=== PATIENT | male | born 2000 | race Hispanic/Latino ===

== ENCOUNTER 2023-06-08 14:58 | Emergency (ER) | payer BC, SELFPAY ==
[2023-06-08 14:59] VITALS: BP 133/78
[2023-06-08] MEDS: NSS 1000 IV (15:44)
[2023-06-08] MEDS: TORADOL 30 MG IV (15:44)
[2023-06-08] MEDS: REGLAN 10 MG IV (15:44)
[2023-06-08 15:56] LABS: % Basophils 0.6 % (0-2); % Eosinophils 1.9 % (0-6); % Immature Granulocytes 0.3 % (0-0.5); % Lymphocytes 23.5 % (20.5-51.1); % Monocytes 9.1 % (1.7-9.3); % Neutrophils 64.6 % (42.2-75.2); Absolute Eosinophils 0.1 10^3/uL (0-0.7); Absolute Lymphocytes 1.6 10^3/uL (1.2-3.4); Absolute Monocytes 0.6 10^3/uL (0.1-0.6); Absolute Neutrophils 4.4 10^3/uL (1.4-6.5); Hematocrit 40.5 % (39.0-52.0); Hemoglobin 14.2 g/dL (13.0-18.0); Mean Corp Hgb Conc. 35.1 g/dL (33.0-37.0); Mean Corpuscular Hgb 29.9 pg (27.0-31.0); Mean Corpuscular Volume 85.3 fL (80.0-94.0); Mean Platelet Volume 9.3 fL (7.4-10.4); Nucleated Red Blood Cells % 0 % (-); Platelet Count 286 10^3/uL (130-400); Red Blood Cell Count 4.75 10^6/uL (4.70-6.10); Red Cell Dist. Width 12.5 % (11.5-14.5); White Blood Cell Count 6.8 10^3/uL (4.8-10.8)
[2023-06-08 16:09] LABS: ALT (SGPT) 34 U/L (0-50); AST (SGOT) 29 U/L (17-59); Albumin 4.6 g/dl (3.5-5.0); Alkaline Phosphatase 91 U/L (38-126); Blood Urea Nitrogen 12 mg/dl (9-20); Calcium 9.5 mg/dl (8.4-10.2); Carbon Dioxide 29 mmol/L (22-30); Chloride 101 mmol/L (98-107); Glucose 93 mg/dl (70-99); Potassium 3.7 mmol/L (3.5-5.1); Sodium 141 mmol/L (135-145); Total Bilirubin 0.6 mg/dl (0.2-1.3); Total Protein 7.4 g/dl (6.3-8.2); eGFR > 60.00
--- NOTE | 2023-06-08 16:10 | ED.GENMED ---
History of Present Illness
General
Chief Complaint: Headache
Source: patient
Exam Limitations: none
Time Seen by Provider: 06/08/23 15:21
Nursing documentation reviewed up to this point in time: agreed with
Travel History
Have you had any contact with someone who has COVID-19?: No
Do you have any symptoms of coronavirus? Fever > 100 degrees, chills, cough, shortness of breath, sore throat, loss of taste or smell, muscle aches, or headache?: No
History of Present Illness
History of Present Illness:
23-year-old male without significant past medical history presenting to the emergency department today with concerns of headache described as diffuse with associated nausea generalized bodyaches over the past few days denies specific fevers. Has
felt some nausea has had some intermittent lightheadedness. Denies any recent exposures any recent upper respiratory syndromes he has no chronic medical conditions no drinking or drug use. Denies this being the worst headache of life or abrupt in
onset.
Review of Systems
Review of Systems
Allergies reviewed?: Yes
All Other Systems: ROS reviewed and negative except as documented in HPI and ROS
Phy Exam
Physical Exam
Physical Exam:
GENERAL: Alert , in no apparent distress
EYE: pupils equal and reactive
NECK: Supple, no significant adenopathy.
ENT: o/p clr, mmm. Neck is supple
CARDIAC: Regular rate and rhythm .
LUNGS: Clear breath sounds bilaterally, no acute respiratory distress, no wheezes/rales/rhonchi
ABDOMEN: Soft, without focal tenderness, no r/g, no cvat
NEUROLOGICAL: Alert and oriented, no focal neuro deficits 5 out of 5 upper and lower extremity strength normal sensation were palpated bilaterally normal finger-nose and [id number] no pronator drift
SKIN: Warm and dry, skin intact.
MUSCULOSKELETAL: No edema, well perfused.
PSYCH: Normal and appropriate interaction.
Course
Orders/Labs/Results
Orders:
Orders
06/08/23 15:32
0.9% Sodium Chloride 1000 ml [Nss] 1,000 ml IV BOLUS
Ketorolac [Toradol] 30 mg IV NOW STA
Metoclopramide [Reglan] 10 mg IV NOW STA
06/08/23 15:43
COVID-19 Antigen Urgent
Source: Nasal Swab
Complete Blood Count/With Diff Urgent
Comprehensive Metabolic Panel Urgent
Influenza A+B Rapid Molecular Urgent
CARMELA Source: Nasal Swab
Specimen Description:
06/08/23 15:43
06/08/23 15:43
Vital Signs
Initial and Last Documented VS:
Initial Vital Signs
Temp Pulse Resp BP Pulse Ox
98.2 F 87 20 133/78 98
06/08/23 14:59 06/08/23 14:59 06/08/23 14:59 06/08/23 14:59 06/08/23 14:59
Last Documented Vital Signs
Temp Pulse Resp BP Pulse Ox
98.2 F 87 20 133/78 98
06/08/23 14:59 06/08/23 14:59 06/08/23 14:59 06/08/23 14:59 06/08/23 14:59
MDM/Problems Addressed
MDM/Problems Addressed:
23-year-old male presenting to the emergency department today with concerns of diffuse headache ongoing for the past few days associated nausea body aches and fatigue. Denies specific upper respiratory symptoms upon arrival here vital signs are
normal patient generally well-appearing no acute distress with normal neurologic evaluation normal eye exam and supple neck. Unlikely be consistent with meningitis no fever. No risk factors. Normal white count. No red flag symptoms of headache
patient claims that symptoms fully resolved after receiving treatment here well-appearing walking steady gait stable for outpatient management given strict return precautions.
*Critical Care Note
Total Time (30-74mins, 75-104mins- exclusive of procedures): Not Applicable
ED Attending Note
-
Portions of this chart may have been created with voice recognition software.� Occasional wrong word or��sound alike� substitutions may have occurred due to the inherent limitations of voice recognition software.
Discharge Plan
Departure
Patient Disposition: Home (Routine Discharge)
Date of Disposition: 06/08/23
Time of Disposition: 18:42
Patient with high blood pressure during this ER visit?: No
Condition: Good
Covid-19: Not Applicable
Discharge Problem:
Headache
Instructions: Headache, Adult (DC)
Referrals:
NONE,* [Family Provider] -
Activity Restrictions/Additional Instructions:
To the emergency department today with concerns of headache. Here had a reassuring evaluation. Please rest over the next few days as symptoms will hopefully be improving. Return to the emergency department any worsening, new or concerning
symptoms.
Interventions
Interventions:
*Risk Screen - Suicide Last Done: 06/08/23 14:59
*General Assessment Last Done: 06/08/23 14:59
*Neglect/Abuse Screening Last Done: 06/08/23 14:59
ED- Fall Risk Assessment Last Done: 06/08/23 15:28
*ED COVID-19 Vaccine History Last Done: 06/08/23 15:29
*Nursing Disposition Last Done: 06/08/23 18:47
ED- Neurological Assessment Last Done: 06/08/23 15:28
Discharge Date and Time
Discharge Date/Time: 06/08/23 18:48
[2023-06-08 16:53] LABS: COVID-19 Antigen Negative (Negative)
== END 2023-06-08 18:48 | disposition home or self-care (01) ==
LOC: EMR 14:58
PROVIDERS: Physician Assistant; EMERGENCY PHYSICIAN Emergency Medicine
DX: R51.9 Headache, unspecified (principal); R11.0 Nausea
CPT/HCPCS: 99283; 96374; 96375; 96361; 80053; 85025; 87502; 87811